=== PATIENT | female | born 1985 | race Caucasian/White ===

== ENCOUNTER 2018-05-25 16:53 | Inpatient (IN) | payer OTHER, BC, MEDICAID ==
[2018-05-25 20:25] LABS: ADD MAN DIFF? NO
[2018-05-25 20:27] LABS: BASOPHILS % 0.3 % (0.0-2.0); EOSINOPHILS # 0.3 10^3/ul (0.0-0.5); EOSINOPHILS % 2.5 % (0.0-7.0); HEMATOCRIT 37.8 % (37.0-47.0); HEMOGLOBIN 12.7 g/dl (12.0-16.0); LYMPHOCYTES # 2.2 10^3/ul (0.8-2.9); LYMPHOCYTES % 21.3 % (15.0-51.0); MEAN CORPUSCULAR HEMOGLOBIN 30.7 pg (29.0-33.0); MEAN CORPUSCULAR HGB CONC 33.6 g/dl (32.0-37.0); MEAN CORPUSCULAR VOLUME 91.3 fl (82.0-101.0); MEAN PLATELET VOLUME 10.8 fl (7.4-10.4); MONOCYTE # 0.8 10^3/ul (0.3-0.9); MONOCYTES % 7.6 % (0.0-11.0); NEUTROPHILS % 67.4 % (39.0-77.0); PLATELET COUNT 262 10^3/UL (140-415); RED BLOOD COUNT 4.14 10^6/ul (4.20-5.40); RED CELL DISTRIBUTION WIDTH 14.8 % (11.5-14.5)
[2018-05-25 20:27] LABS: WHITE BLOOD COUNT 10.3 10^3/ul (4.8-10.8)
[2018-05-25 20:47] LABS: INR 0.86; PROTIME 11.8 Sec (11.9-14.9); PT RATIO 0.9
[2018-05-25 20:48] LABS: PARTIAL THROMBOPLASTIN TIME 27.7 Sec (25.0-35.0)
[2018-05-25 21:15] LABS: HEPATITIS B SURFACE ANTIGEN NEGATIVE (NEGATIVE)
[2018-05-25] MEDS ORDERED: BUTORPHANOL 1 MG INJ IV (23:00)
[2018-05-25] MEDS ORDERED: CARBOPROST 250 MCG INJ IM (23:00)
[2018-05-25] MEDS ORDERED: METHYLERGONOVINE 0.2 MG INJ IM (23:00)
[2018-05-25] MEDS ORDERED: HYDROCODONE/APAP (5/325) TAB PO (23:00)
[2018-05-25] MEDS ORDERED: BUTORPHANOL 2 MG INJ IV (23:00)
[2018-05-25] MEDS ORDERED: OXYTOCIN 30 UNITS/LR 500 ML IV ×3 (23:00)
[2018-05-25] MEDS ORDERED: MISOPROSTOL 200 MCG TAB PR (23:00)
[2018-05-25] MEDS: LACTATED RINGER'S 1,000 ML IV (23:29)
[2018-05-25] MEDS: AMPICILLIN 2 GM/NS (PMX) 100 ML IV (23:51)
[2018-05-26] MEDS: LACTATED RINGER'S 1,000 ML IV ×3 (01:12→23:00)
[2018-05-26] MEDS: AMPICILLIN 1 GM/NS (PMX) 50 ML IV ×6 (03:00→23:00)
[2018-05-26] MEDS: OXYTOCIN 30 UNITS/LR 500 ML IV ×3 (10:03→15:05)
[2018-05-26] MEDS: LIDOCAINE 1% (MPF) 30 ML INJ INJ (13:48)
[2018-05-26] MEDS: IBUPROFEN 600 MG TAB PO ×3 (13:48→23:55)
[2018-05-26] MEDS ORDERED: NACL 0.9% 3 ML SYG IV (15:00)
[2018-05-26] MEDS ORDERED: CARBOPROST 250 MCG INJ IM (15:00)
[2018-05-26] MEDS ORDERED: OXYTOCIN 30 UNITS/LR 500 ML IV (15:00)
[2018-05-26] MEDS ORDERED: DIBUCAINE 1% 30 GM OINT PR (15:00)
[2018-05-26] MEDS ORDERED: ACETAMINOPHEN 325 MG TAB PO (15:00)
[2018-05-26] MEDS ORDERED: MAGNESIUM HYDROXIDE 30ML CUP PO (15:00)
[2018-05-26] MEDS ORDERED: HYDROCODONE/APAP (5/325) TAB PO (15:00)
[2018-05-26] MEDS ORDERED: METHYLERGONOVINE 0.2 MG INJ IM (15:00)
[2018-05-26] MEDS ORDERED: MISOPROSTOL 200 MCG TAB PR (15:00)
[2018-05-26 15:34] LABS: ADD MAN DIFF? NO; BASOPHILS % 0.2 % (0.0-2.0); HEMATOCRIT 38.7 % (37.0-47.0); LYMPHOCYTES % 5.1 % (15.0-51.0); MEAN CORPUSCULAR HEMOGLOBIN 30.7 pg (29.0-33.0); MEAN CORPUSCULAR HGB CONC 33.6 g/dl (32.0-37.0); MEAN CORPUSCULAR VOLUME 91.5 fl (82.0-101.0); MEAN PLATELET VOLUME 10.6 fl (7.4-10.4); MONOCYTE # 0.7 10^3/ul (0.3-0.9); MONOCYTES % 3.5 % (0.0-11.0); NEUTROPHIL # 18.1 10^3/ul (1.6-7.5); NEUTROPHILS % 90.7 % (39.0-77.0); PLATELET COUNT 252 10^3/UL (140-415); RED BLOOD COUNT 4.23 10^6/ul (4.20-5.40); RED CELL DISTRIBUTION WIDTH 14.9 % (11.5-14.5)
[2018-05-26 15:34] LABS: WHITE BLOOD COUNT 19.9 10^3/ul (4.8-10.8)
[2018-05-26] MEDS ORDERED: morphine SULFATE/PF (10 MG/10 ML) INJ (16:43)
[2018-05-26] MEDS ORDERED: BUPIVACAINE 0.75%/DEXT (SPINAL) 2 ML INJ (16:43)
[2018-05-26] MEDS: LANOLIN 7 GM TUBE TOP (16:55)
[2018-05-26] MEDS: WITCH HAZEL/GLYCERIN PAD PR (16:55)
[2018-05-26] MEDS: BENZOCAINE 20% 56 ML SPRAY TOP (16:55)
[2018-05-26] MEDS: HYDROCODONE/APAP (5/325) TAB PO (16:55)
[2018-05-26 20:07] LABS: RAPID PLASMA REAGIN NONREACTIVE (NR)
[2018-05-26] MEDS: SENNA/DOCUSATE NA (8.6MG/50MG) TAB PO (21:47)
[2018-05-27] MEDS: IBUPROFEN 600 MG TAB PO ×4 (05:28→23:33)
[2018-05-27 08:19] LABS: ADD MAN DIFF? NO
[2018-05-27 08:23] LABS: WHITE BLOOD COUNT 13.8 10^3/ul (4.8-10.8)
[2018-05-27 08:23] LABS: BASOPHILS % 0.3 % (0.0-2.0); EOSINOPHILS # 0.1 10^3/ul (0.0-0.5); EOSINOPHILS % 0.9 % (0.0-7.0); HEMATOCRIT 35.3 % (37.0-47.0); HEMOGLOBIN 11.6 g/dl (12.0-16.0); LYMPHOCYTES % 14.2 % (15.0-51.0); MEAN CORPUSCULAR HEMOGLOBIN 30.7 pg (29.0-33.0); MEAN CORPUSCULAR HGB CONC 32.9 g/dl (32.0-37.0); MEAN CORPUSCULAR VOLUME 93.4 fl (82.0-101.0); MEAN PLATELET VOLUME 10.8 fl (7.4-10.4); MONOCYTE # 0.8 10^3/ul (0.3-0.9); MONOCYTES % 5.4 % (0.0-11.0); NEUTROPHIL # 10.8 10^3/ul (1.6-7.5); NEUTROPHILS % 78.3 % (39.0-77.0); PLATELET COUNT 227 10^3/UL (140-415); RED BLOOD COUNT 3.78 10^6/ul (4.20-5.40); RED CELL DISTRIBUTION WIDTH 15.2 % (11.5-14.5)
[2018-05-27] MEDS: SENNA/DOCUSATE NA (8.6MG/50MG) TAB PO ×2 (09:01→21:00)
[2018-05-28] MEDS: IBUPROFEN 600 MG TAB PO ×2 (05:29→12:00)
[2018-05-28] MEDS: SENNA/DOCUSATE NA (8.6MG/50MG) TAB PO (08:59)
[2018-05-28] MEDS: DIPHTH/TET/ACEL PERTUSS (ADULT) 0.5 ML VIAL IM* (09:00)
[2018-05-28] MEDS: VARICELLA VACCINE LIVE/PF 1,350 UNIT/0.5 ML ML SC* (09:00)
== END 2018-05-28 15:20 | disposition home or self-care (01) | DRG 775 ==
LOC: OBT 16:53 → L-D 05-26 01:02 → PP1 05-26 15:04 → OBT 22:58 → L-D 22:58
PROVIDERS: Obstetrics & Gynecology
PROC: 10E0XZZ Delivery of Products of Conception, External Approach (ICD-10-PCS; principal; 2018-05-26)
PROC: 0HQ9XZZ Repair Perineum Skin, External Approach (ICD-10-PCS; 2018-05-26)
PROC: 3E033VJ Introduction of Other Hormone into Peripheral Vein, Percutaneous Approach (ICD-10-PCS; 2018-05-26)
DX: O70.0 First degree perineal laceration during delivery (principal); O69.81X0 Labor and delivery complicated by cord around neck, without compression, not applicable or unspecified; Z3A.39 39 weeks gestation of pregnancy; Z37.0 Single live birth
CPT/HCPCS: 76815; 76818; 85025; 85610; 85730; 86592; 86850; 86900; 86901; 87340; 99464

== ENCOUNTER 2018-07-06 07:31 | Emergency (ER) | payer OTHER, BC, MEDICAID ==
[2018-07-06] MEDS: predniSONE 20 MG TAB PO (08:12)
[2018-07-06] MEDS: DIPHENHYDRAMINE 50 MG CAP PO (08:12)
[2018-07-06] MEDS: FAMOTIDINE 20 MG TAB PO (08:12)
[2018-07-06] MEDS ORDERED: METHYLPREDNISOLONE 125 MG INJ IM (08:30)
== END 2018-07-06 08:46 | disposition home or self-care (01) ==
LOC: FTE 07:31
DX: L50.9 Urticaria, unspecified (principal)
CPT/HCPCS: 99283; J2930